=== PATIENT | female | born 1950 | race Caucasian/White ===

== ENCOUNTER 2021-07-20 08:22 | Day surgery (SDC) | payer MEDICARE, OTHER ==
--- NOTE | 2021-07-20 08:05 | HP ---
DATE OF SURGERY: 07/20/2021 HISTORY OF PRESENT ILLNESS: The patient is a 70-year-old last colonoscopy a few years ago. She had some bright red blood per rectum recently. She had some epigastric pain as well. Family history of mother with lung cancer. PAST MEDICAL HISTORY: Hypertension, gastroesophageal reflux disease, rheumatoid arthritis. PAST SURGICAL HISTORY: Appendectomy. Hysterectomy. Tubal ligation. Knee replacement. MEDICATIONS: Lisinopril, Pepcid, Orencia, hydroxychloroquine, folate, methotrexate, estradiol, multivitamin, diclofenac gel. ALLERGIES: NKDA. FAMILY HISTORY: Mother with cancer. Father had stroke. SOCIAL HISTORY: She denies alcohol abuse. REVIEW OF SYSTEMS: Fourteen systems reviewed. No chest pain or palpitations. Other systems negative or noncontributory as above and per preadmission questionnaire. PHYSICAL EXAMINATION: GENERAL: No acute distress. HEENT: Sclerae nonicteric. NECK: No JVD. CHEST: Equal excursion, nonlabored breathing. CVS: Regular rate and rhythm. ABDOMEN: Soft. No peritoneal signs. Mild tenderness epigastrium. EXTREMITIES: No significant edema. NEURO: Alert, oriented, moving extremities symmetrically. RECTAL: Deferred timed to endoscopy exam. PSYCH: Appropriate mood and affect. IMPRESSION: History of some epigastric aches and pains in need of upper endoscopy. History of some rectal bleeding in need of colonoscopy. Risks and benefits explained in detail including but not limited to bleeding or infection, risk of bowel injury or perforation possibly requiring open procedure, risk of missed or nondiagnosis or incomplete exam possibly requiring barium swallow, barium enema, other studies or procedures. General risk of anesthesia or sedation but not limited to, consent obtained, will proceed with EGD and colonoscopy under MAC anesthesia as an outpatient.
[2021-07-20] MEDS ORDERED: Lactated Ringers 1,000 ML IV SCH (09:00)
[2021-07-20] MEDS ORDERED: Xylocaine-Mpf 2% 5 Ml Vial ONE (10:10)
[2021-07-20] MEDS ORDERED: DIPRIVAN 200 MG/20 ML IV ONE (10:10)
[2021-07-20] MEDS ORDERED: Versed 2 MG/2 ML Injection ONE (10:13)
--- NOTE | 2021-07-21 07:55 | OP ---
SURGERY DATE/TIME: 07/20/2021 1033 PREOPERATIVE DIAGNOSES: 1) Epigastric pain. 2) Persistent rectal bleeding. 3) Need for upper and lower endoscopy. POSTOPERATIVE DIAGNOSES: 1) ASA Class II. 2) Minimal distal esophagus inflammation. 3) Erosive gastritis. 4) Question of small prepyloric ulceration versus tiny diverticulum. 5) Mild duodenitis. 6) Diverticulosis. 7) Very tortuous colon. 8) Fair bowel prep but limited. 9) Small polyps transverse colon and rectum versus hyperplastic lesion, path pending. 10) Small internal and external hemorrhoids. PROCEDURES: 1) EGD with cold biopsy of small bowel to evaluate for celiac sprue. 2) Cold biopsy body of antrum to evaluate for Helicobacter pylori. 3) Cold biopsy distal esophagus to evaluate for some early mild chronic esophagitis. 4) Colonoscopy to cecum. 5) Hot biopsy polypectomy small transverse colon polyp. 6) Hot biopsy polypectomy small sigmoid colon polyp. SURGEON: Dr. Rubens Torres. ANESTHESIA: MAC. ESTIMATED BLOOD LOSS: Minimal. INDICATIONS: As noted above. Risks and benefits explained in detail and not limited to and consent obtained. DESCRIPTION OF PROCEDURE AND FINDINGS: The patient is taken to the operating room. MAC anesthesia introduced. After official time out and no disagreement with planned procedure, bite block positioned. Video gastroscope easily passed through the pylorus to the third portion of the duodenum. The third, second and first portions of duodenum some mild inflammation. No evidence of any ulcers. Cold biopsy is taken to evaluate for celiac sprue. Good hemostasis noted. Scope pulled back into the antrum with some little petechial hemorrhages. Somehow, the picture was not taken right. She did have a questionable small ulcer versus a little diverticulum in the prepyloric area. Cold biopsies taken of the antrum to evaluate for Helicobacter pylori. On retroflex, the gastroesophageal junction snug against the scope. No signs of any hiatal hernia. There were no signs of any other obvious masses or ulcer. The scope pulled back to gastroesophageal junction. Z-line was fairly crisp. There was a little bit of some signs that she had some inflammation in the past and had some esophagitis in the past. It looks like it is chronic and fairly well healed. There was no deep erosions just some mild inflammation. No signs of any masses. The scope is withdrawn. The patient tolerated this part of the procedure well. Attention is then turned to colonoscopy. On digital rectal exam she had some internal and external hemorrhoids. No palpable masses. Video colonoscope inserted and passed up the tortuous sigmoid, descending, transverse colon and ascending colon around to the very tortuous colon requiring positioning on her back and two additional staff members pushing on the abdomen. It was a tortuous colon. It took some time but finally reached the cecum. Appendiceal orifice and valve were well visualized and photo documented. Palpation right upper quadrant confirmed location. The scope is carefully withdrawn over the next ten minutes. A small polyp in the proximal transverse colon removed with hot biopsy forceps with brief bursts of cautery. Good hemostasis noted. The prep overall was fair but limited with some liquidy semisolid stool slightly limiting the exam for small lesions. The scope is slowly and carefully withdrawn. She did have some diverticulosis in the left colon. There is a small early polyp versus hyperplastic lesion in the sigmoid colon removed with hot biopsy forceps with brief bursts of cautery. Good hemostasis noted. Otherwise no signs of any large polyps, masses or obstructing lesion. Question whether small hemorrhoids that had been irritated caused her rectal bleeding in the past as there is no other obvious major finding. The patient tolerated the procedure well. There were no immediate complications. Findings discussed with the family out in the waiting area. I will see her back in the office next week.
[2021-07-27 16:41] VITALS: BP 146/67; PULSE 84; O2SAT 98
== END 2021-07-20 10:00 | disposition home or self-care (01) ==
LOC: SDC 08:22
PROVIDERS: ATTEND Surgery
DX: K29.00 Acute gastritis without bleeding (principal); K20.90 Esophagitis, unspecified without bleeding; K29.80 Duodenitis without bleeding; K57.90 Diverticulosis of intestine, part unspecified, without perforation or abscess without bleeding; K64.8 Other hemorrhoids; K64.4 Residual hemorrhoidal skin tags; Z80.1 Family history of malignant neoplasm of trachea, bronchus and lung
CPT/HCPCS: 88305; J2250; J2704

== ENCOUNTER 2025-04-02 06:24 | Day surgery (SDC) | payer MEDICARE, OTHER ==
[2025-04-02] MEDS ORDERED: Lactated Ringers 1,000 ML IV ONE ×2 (07:08→08:44)
[2025-04-02] MEDS ORDERED: CEFAZOLIN SODIUM ONE (07:08)
[2025-04-02] MEDS: Lactated Ringers 1,000 ML IV SCH (07:19)
[2025-04-02 07:39] LABS: Hematocrit 44.7 % (34.1-44.9); Hemoglobin 14.7 g/dL (11.2-15.7); Mean Corpuscular Hemoglobin 31.1 pg (25.6-32.2); Mean Corpuscular Hgb Concent. 32.9 g/dL (32.2-35.5); Platelet Count 209 x10^3/uL (182-369); Red Blood Count 4.72 x10^6/uL (3.93-5.22); White Blood Count 5.5 x10^3/uL (3.98-10.04)
[2025-04-02 07:53] LABS: Calcium 10.0 mg/dL (8.4-10.2); Carbon Dioxide 27.0 mmol/L (22-30); Creatinine 1 0.97 mg/dL (0.52-1.04); EST GLOMERULAR FILTRATION RATE 61.7 ML/MIN; Glucose 93.0 mg/dL (74-106); Potassium 4.6 mmol/L (3.5-5.1); SGOT/AST 32.0 U/L (14-36); SGPT/ALT 19.0 U/L (0-35); Total Protein 6.7 g/dL (6.3-8.2)
[2025-04-02] MEDS ORDERED: Xylocaine 1% Vial 30 ML PF IJ ONE (08:44)
[2025-04-02] MEDS ORDERED: Marcaine Mpf 0.5% Vial 30 Ml ONE (08:44)
[2025-04-02] MEDS ORDERED: SUBLIMAZE 100 MCG/2 ML ONE ×2 (08:51→10:57)
[2025-04-02] MEDS ORDERED: Zofran 4 MG/2 ML VIAL ONE ×2 (09:53→11:09)
[2025-04-02] MEDS ORDERED: ROCURONIUM BROMIDE IV ONE (09:53)
[2025-04-02] MEDS ORDERED: propofoL IV ONE (09:53)
[2025-04-02] MEDS ORDERED: BRIDION 200MG/2ML IV ONE (10:20)
--- NOTE | 2025-04-02 11:02 | XRAY ---
Indication: Right 1st MTP arthrodesis, 2nd hammertoe correction, and 2nd anita osteotomy. Intraoperative fluoroscopy provided for 1 minute 37 seconds. 20 digital spot images submitted for interpretation ultimately demonstrates 1st MTP arthrodesis, fusion 2nd toe, and 2nd metatarsal head anita osteotomy all with intact hardware. Correlate with intraoperative findings/report.
[2025-04-02] MEDS ORDERED: DILAUDID 0.5 MG/0.5 ML SYRINGE ONE (11:17)
[2025-04-02] MEDS ORDERED: Ativan 2 MG/1 ML VIAL IV PRN (12:03)
[2025-04-02] MEDS ORDERED: Compazine 10 MG/2 ML ONE (12:15)
[2025-04-02] MEDS ORDERED: DICLOFENAC SODIUM TP PRN ×2 (13:13→13:27)
[2025-04-02] MEDS: NORCO 5/325 MG PO PRN (13:31)
[2025-04-02] MEDS ORDERED: MEDICATION INTERVENTION MC SCH (13:45)
--- NOTE | 2025-04-02 14:10 | XRAY ---
One minute and 37 seconds of fluoroscopy was used in surgery for a right 1st MTP arthrodesis, 2nd hammertoe correction, and 2nd anita osteotomy.
[2025-04-02] MEDS: Compazine 10 MG/2 ML IV ONE (17:07)
[2025-04-02 17:15] LABS: Hematocrit 43.7 % (34.1-44.9); Hemoglobin 14.6 g/dL (11.2-15.7); Mean Corpuscular Hemoglobin 31.4 pg (25.6-32.2); Mean Corpuscular Hgb Concent. 33.4 g/dL (32.2-35.5); Platelet Count 200 x10^3/uL (182-369); Red Blood Count 4.65 x10^6/uL (3.93-5.22); White Blood Count 11.3 x10^3/uL (3.98-10.04)
[2025-04-02 17:29] LABS: Calcium 9.2 mg/dL (8.4-10.2); Carbon Dioxide 22.0 mmol/L (22-30); Creatinine 1 0.74 mg/dL (0.52-1.04); EST GLOMERULAR FILTRATION RATE 85.4 ML/MIN; Glucose 121.0 mg/dL (74-106); Potassium 4.0 mmol/L (3.5-5.1); SGOT/AST 31.0 U/L (14-36); SGPT/ALT 18.0 U/L (0-35); Total Protein 6.3 g/dL (6.3-8.2)
[2025-04-02] MEDS: Pepcid 20 MG PO SCH (21:40)
[2025-04-03 07:29] VITALS: BP 124/58; PULSE 74; RESP 20; TEMP 97.5; O2SAT 96
[2025-04-03] MEDS ORDERED: NON-FORMULARY ITEM (Estradiol [Estrace] 0.5 MG Tablet) PO SCH (10:00)
[2025-04-03] MEDS ORDERED: NON-FORMULARY ITEM (Hydroxychloroquine Sulfate [Plaquenil] 200 MG Tablet) PO SCH (10:00)
[2025-04-03] MEDS ORDERED: METHOTREXATE SODIUM 5 MG PO SCH (10:00)
[2025-04-03] MEDS ORDERED: TREXALL 2.5 MG PO SCH (10:00)
[2025-04-03] MEDS ORDERED: MELOXICAM PO SCH (10:00)
[2025-04-03] MEDS ORDERED: NON-FORMULARY ITEM (Multivitamin [Multivitamin] 1 EACH Tablet) PO SCH (10:00)
[2025-04-03] MEDS ORDERED: NON-FORMULARY ITEM (Meloxicam [Mobic] 15 MG Tablet) PO SCH (10:00)
[2025-04-03] MEDS: Levofloxacin 500 MG Tablet PO SCH (10:19)
[2025-04-03] MEDS: THERAGRAN MULTIVITAMIN PO SCH (10:19)
[2025-04-03] MEDS: Ecotrin 325 MG PO SCH (10:19)
[2025-04-03] MEDS: FOLATE 1 MG PO SCH (10:19)
[2025-04-03] MEDS: ESTRACE 1 MG PO SCH (10:19)
[2025-04-03] MEDS: Zestril 20 MG PO SCH (10:19)
--- NOTE | 2025-04-03 10:19 | OP ---
SURGERY DATE/TIME: 04/02/2025 5037-6939 PREOPERATIVE DIAGNOSES: 1) Hallux valgus, right foot. 2) Osteoarthritis, first metatarsophalangeal joint, right foot. 3) Metatarsal deformity. 4) Hammertoe, right foot. 5) Rheumatoid arthritis. 6) Pain with ambulation. POSTOPERATIVE DIAGNOSIS: 1) Hallux valgus, right foot. 2) Osteoarthritis first metatarsophalangeal joint, right foot first metatarsophalangeal joint. 3) Metatarsal deformity. 4) Hammertoe right foot. 5) Rheumatoid arthritis. 6) Pain with ambulation. PROCEDURES: 1) First metatarsophalangeal joint arthrodesis, first metatarsophalangeal joint, right. 2) New osteotomy, second metatarsal. 3) Hammertoe correction with proximal interphalangeal joint arthrodesis, second digit, right foot. SURGEON: Dayne Leslie DPM. FURNITURE DELIVERY DRIVER: EDUARDO Villarreal. ANESTHESIA: General. HEMOSTASIS: Thigh tourniquet set to 275 mmHg for a total of 60 total tourniquet minutes. ESTIMATED BLOOD LOSS: Approximately 5 mL. MATERIALS: 4-0 Monocryl, 3-0 nylon. A Kriss ALPS 0-degree first MPJ right with a 34 x 30 VPC screw, and then a 2.0 x 12 New headed, partially-threaded screw, and then a 2.5 x 34 VPC screw for the hammertoe. INJECTABLES: Ankle block consisting of 30 mL of 1:1 mixture of 1% lidocaine plain and 0.5% bupivacaine plain injected in an ankle block type fashion to the right lower extremity. INDICATIONS: The patient is a very pleasant 74-year-old female who presented to my service with complaints of pain to the right lower extremity secondary to her bunion and hammertoe to the right lower extremity. Given her longstanding history of osteoarthritis to the first MPJ as well as rheumatoid arthritis, I did think stability was of the upmost importance in respect to the patient's clinical complaints of pain. From that standpoint, we decided on a surgical approach that will help impart more stability and correct the bunion deformity as well as the contracture at the level of the second digit and any pain at the ball of the foot. From that standpoint, patient has been made aware of all risks, complications, and benefits of surgical intervention including, but not limited to, infection, hematoma, seroma, possibility of delayed wound healing, non-wound healing, possibility of hardware failure, possibility of nonunion, possibility of delayed union, and possible continued pain. From that standpoint, patient understands she will no longer be able to bend her big toe or second toe. From that standpoint, the goal of the procedure is to impart stability and reduce pain. This is not a cosmetic procedure. Plenty of time was allowed for the patient to ask questions, which were answered to her satisfaction. No guarantees were provided as to the outcome. At this time, we decided to proceed. DESCRIPTION OF PROCEDURE AND FINDINGS: Patient was brought into the operating room and placed on the operating room table in the supine position. At this time, general anesthesia was administered until the patient was adequately sedated. The right lower extremity was prepped and draped in the typical sterile fashion and lowered onto the surgical field. At this time, a thigh tourniquet was applied to the right thigh and the tourniquet was set to 275 mmHg. An Esmarch was utilized to exsanguinate the foot and the tourniquet was inflated. From that standpoint, a linear incision was made utilizing a 10 blade just medial to the hallux, the extensor digitorum longus. This was deepened along the same tissue plane, making sure not to damage any neurovascular structures. A 15 blade was then utilized to provide a capsular dissection and provide a medial and lateral J stroke. Once this was performed, the cartilage was assessed. At the medial aspect of the joint, the cartilage was completely eroded and there was significant amount of spurring. This was resected utilizing an 18 mm sagittal saw and then using cup and conical reamers. The remaining cartilage was then denuded from the site. From that standpoint, copious amounts of sterile saline were utilized to flush the surgical site. A 2 mm drill was then utilized to fenestrate both metatarsal head and the proximal phalanx. Once this occurred, a Kriss [facility] 0-degree first MPJ plate was then introduced dorsally. The position was assessed and deemed to be adequate. A combination of locking and nonlocking screws were utilized to lock up the distal aspect of the plate. Then, interfragmentary screw and eccentric compression screw were then placed, and then alternated between the 2 slots in order to gain adequate compression through this site. Following this, locking screws were utilized to fix down the plate in an adequate position where the transverse plane was corrected. There was no joint space, and the sagittal plane was assessed to be in line with her weightbearing status. From that standpoint, final shots were taken of this portion of the procedure. Second digit was assessed and on a loaded position, there was a dorsiflexory contracture at the metatarsophalangeal joint. From that standpoint, we decided to proceed with a New. A linear incision was made over the dorsal aspect of the second metatarsophalangeal joint. This was deepened, making sure not to damage any neurovascular structures. A linear incision was made over the extensor digitorum longus that slipped, where then a Z-lengthening tenotomy was performed. This was carried down to the second metatarsophalangeal joint where a linear capsulotomy was performed, utilizing the 18 mm sagittal saw. The sagittal saw was utilized perpendicular with the weightbearing surface to the make the osteotomy in the metatarsal head, and then this was pushed back approximately 3 mm, gaining significant reduction in the dorsiflexory contracture. From that standpoint, a 12 mm headed cannulated, partially-threaded screw was introduced. This was checked on the lateral view to make sure it did not go through the bicortical surface. From that standpoint, once the overhang was then resected utilizing a rongeur and then a transverse incision was made over the proximal interphalangeal joint. Once this was performed, an 18 mm sagittal saw was utilized to take out the proximal phalangeal head as well as the middle phalangeal base. Once this was performed, copious amounts of sterile saline were utilized to flush this site. A K-wire was then anterograded out the tip of the toe, checked under fluoroscopy, and then retrograded into the proximal phalangeal base centrally. Once this was performed, a 2.5 x 34 VPC screw was then introduced, gaining excellent compression at the second digit proximal interphalangeal joint. Final shots were taken of this position. The tenotomy was then repaired utilizing 4-0 Monocryl. The capsule was then closed utilizing 4-0 Monocryl in a continuous interlocking suture. Then, 4-0 Monocryl was utilized in a simple interrupted buried type fashion to coapt the subcutaneous skin edges and 3-0 nylon was then utilized to coapt the skin edges in a horizontal mattress type fashion. A dressing consisting of Betadine, Adaptic, 4 x 4, Kerlix, ABD, and Davi was applied to the patient's right lower extremity. Patient was then reversed from anesthesia and returned to the postoperative anesthesia care unit with vital signs stable and vascular status intact. Patient handled the anesthesia as well as the procedure without significant complication. Postoperative orders as indicated in the patient's discharge chart.
== END 2025-04-03 10:54 | disposition home or self-care (01) ==
LOC: SDC 06:24 → MED SURG 13:05 → SDC 04-03 10:54
PROVIDERS: ATTEND Podiatrist Foot & Ankle Surgery
DX: M20.11 Hallux valgus (acquired), right foot (principal); M19.071 Primary osteoarthritis, right ankle and foot; M21.961 Unspecified acquired deformity of right lower leg; M20.41 Other hammer toe(s) (acquired), right foot; M06.9 Rheumatoid arthritis, unspecified; R26.2 Difficulty in walking, not elsewhere classified
CPT/HCPCS: 01480; 28285; 28308; 28750; 36415; 73630; 76000; 80053; 82947; 85027; 93005; 99100; C1713